=== PATIENT | female | born 1990 | race American Indian/Alaskan Native ===

== ENCOUNTER 2017-02-09 11:42 | Emergency (ER) | payer SELFPAY ==
--- NOTE | 2017-02-09 14:28 | Emergency Department Report ---
Chief Complaint: Pain General Stated Complaint: GENERAL PAIN Time Seen by Provider: 02/09/17 14:28 - HPI History of Present Illness: Patient reports that she found out by home test that she is . Last pressure. Was 12/09/2016. She says she is having generalized aches and pain and lower abdominal cramping. Denies any nausea or vomiting. She denies having any pain at present. Denies any vaginal bleeding or discharge. Denies any urinary burning frequency or urgency. Denies any fever or chills. Patient said that this is her first . She says she took medication last week for cramping. - ROS Review of Systems: All systems are negative unless stated in HPI above - Exam Vital Signs: Vital Signs 02/09/17 12:16 Temperature 98 F Pulse Rate 73 Respiratory 20 Rate Blood Pressure 112/66 O2 Sat by Pulse 100 Oximetry Physical Exam: Gen.: This is a 26-year-old female well-nourished well-developed in no acute distress. Abdomen: No guarding or rebound tenderness, no CVA tenderness. Positive bowel sounds in all quadrants. MSE screening note: Focused history and physical exam performed. Due to findings the following was ordered:mdm ED Medical Decision Making - Medical Decision Making MDM: Patient screened by provider in triage area. Appropriate protocol initiated and patient to be seen in main ED by PROVIDER. ED Disposition for MSE Condition: Stable
[2017-02-09 15:17] LABS: Basophils % (Auto) 0.4 % (0.0-1.8); Hematocrit 32.7 % (30.3-42.9); Mean Corpuscular HGB Conc 34 % (30-34); Mean Corpuscular Volume 77 fl (79-97); Platelet Count 220 K/mm3 (140-440); Red Blood Count 4.26 M/mm3 (3.65-5.03); Red Cell Distribution Width 14.4 % (13.2-15.2); White Blood Count 8.5 K/mm3 (4.5-11.0)
[2017-02-09 15:27] LABS: Anion Gap 15 mmol/L; BUN/Creatinine Ratio 18; Blood Urea Nitrogen 9 mg/dL (7-17); Calcium 8.7 mg/dL (8.4-10.2); Carbon Dioxide 23 mmol/L (22-30); Chloride 102.3 mmol/L (98-107); Glucose 70 mg/dL (65-100); Sodium 136 mmol/L (137-145)
[2017-02-09 15:34] LABS: Mean Corpuscular Hemoglobin 26 pg (28-32)
[2017-02-09 15:38] LABS: Bilirubin,Urine NEG (Negative); Blood,Urine NEG (Negative); Ketones,Urine NEG (Negative); Leukocyte Esterase,Urine NEG (Negative); Mucus,Urine 2+ /HPF; Nitrite,Urine NEG (Negative); Protein,Urine <15 mg/dL mg/dL (Negative); Urobilinogen,Urine < 2.0 mg/dL (<2.0)
--- NOTE | 2017-02-09 22:00 | Emergency Department Report ---
HPI - General Chief Complaint: Pain General Time Seen by Provider: 02/09/17 14:28 - HPI HPI: This is a 26-year-old female presents to the emergency department with complaint of a few days of some generalized body aches and pains. She also found out that she was last week from a home test. Her last menstrual cycle was in December but she says that it has been "irregular all year." She does not currently have an [facility]. She took some ibuprofen for her discomfort prior to presentation. She denies any vaginal bleeding, dysuria, vaginal discharge, fever, nausea or vomiting. She says that she has an appointment tomorrow at an [facility] clinic at 1 PM to have a free ultrasound done. ED Past Medical Hx - Past Medical History Previous Medical History?: No - Surgical History Past Surgical History?: No - Social History Smoking Status: Current Every Day Smoker Substance Use Type: Alcohol, Marijuana - Medications Home Medications: Home Medications Medication Instructions Recorded Confirmed Last Taken Type Vit No.130/Iron/FA 1 each PO QDAY #30 tablet 02/09/17 Unknown Rx [ Tablet] ED Review of Systems ROS: Stated complaint: GENERAL PAIN Other details as noted in HPI Comment: All other systems reviewed and negative Constitutional: denies: chills, fever Eyes: denies: eye pain, eye discharge, vision change ENT: denies: ear pain, throat pain Respiratory: denies: cough, shortness of breath, wheezing Cardiovascular: denies: chest pain, palpitations Gastrointestinal: abdominal pain. denies: nausea, vomiting Genitourinary: denies: urgency, dysuria, discharge Musculoskeletal: arthralgia, myalgia Skin: denies: rash, lesions Neurological: denies: headache, weakness, paresthesias Physical Exam - Physical Exam Vital Signs: Vital Signs 02/09/17 12:16 Temperature 98 F Pulse Rate 73 Respiratory 20 Rate Blood Pressure 112/66 O2 Sat by Pulse 100 Oximetry Physical Exam: GENERAL: The patient is well-developed well-nourished. HENT: Normocephalic. Atraumatic. Patient has moist mucous membranes. EYES: Extraocular motions are intact. Pupils equal reactive to light bilaterally. NECK: Supple. Trachea is midline. CHEST/LUNGS: Clear to auscultation. There is no respiratory distress noted. HEART/CARDIOVASCULAR: Regular. There is no tachycardia. There is no gallop rub or murmur. ABDOMEN: Abdomen is soft, nontender. No guarding or rebound tenderness. Patient has normal bowel sounds. There is no abdominal distention. SKIN: Skin is warm and dry. NEURO: The patient is awake, alert, and oriented. The patient is cooperative. The patient has no focal neurologic deficits. The patient has normal speech. MUSCULOSKELETAL: There is no tenderness or deformity. There is no limitation range of motion. There is no evidence of acute injury. Muscle strength 5 out of 5 upper and lower extremities bilaterally including EHL. ED Course Vital Signs 02/09/17 12:16 Temperature 98 F Pulse Rate 73 Respiratory 20 Rate Blood Pressure 112/66 O2 Sat by Pulse 100 Oximetry ED Medical Decision Making - Lab Data Result diagrams: 02/09/17 14:42 02/09/17 14:42 - Medical Decision Making 26-year-old female presents with some generalized body aches including some lower abdomen for the past few days. She also has a positive home test. Her labs are mostly unremarkable including no urinary tract infection but she did have a positive home test. I checked the quantitative beta hCG and it was at about 8500. The patient was offered an ultrasound to make sure that there was a intrauterine versus an ectopic, however the patient deferred/refused this imaging examination she has an appointment tomorrow at 1 PM to have an ultrasound done and she does not want to incur the cost of having it done to the emergency department when it will be free for her tomorrow at 1 PM. I spoke to the patient in great detail about my concern for a lack of imaging as I cannot rule out an ectopic or confirm an intrauterine . She understands that if there is an ectopic then it could be a obstetric and/or surgical emergency and can result in ruptured fallopian tube, loss of fallopian tube and/or ovary, pain and infection , future infertility issues. The patient does not have a toxic or rigid abdomen. Her body aches are also in other locations besides just the abdomen that would not be consistent with any emergent condition. She does not have a leukocytosis. Vital signs are stable including being afebrile. The patient understands that if she has to develop any worsening of her abdominal pain, developing a fever or any signs of worsening of her condition or any acute distress, she needs to return to the emergency Department immediately. She continues to reiterate that she has her appointment and she will make sure that she does not miss it. - Differential Diagnosis , fibroids, ectopic, UTI Critical Care Time: No Critical care attestation.: If time is entered above; I have spent that time in minutes in the direct care of this critically ill patient, excluding procedure time. ED Disposition Clinical Impression: Body aches Qualifiers: Weeks of gestation: less than 8 weeks Qualified Code(s): Z3A.01 - Less than 8 weeks gestation of Disposition: DC-01 TO HOME OR SELFCARE Is pt being admited?: No Condition: Stable Instructions: (ED) Additional Instructions: Please follow up tomorrow with your [facility] or the clinic for a urinary ultrasound as previously scheduled. Your hormone level today was 8500. Return to the emergency department immediately with any vaginal bleeding , sharp abdominal pain, or any acute distress. I have started you on a vitamin to be taken daily. He can take Tylenol every 4 hours, using weight-based dosing, as needed for any discomfort. Otherwise do not take any medications that are not prescribed by a physician. Prescriptions: Vit No.130/Iron/FA [ Tablet] 1 each PO QDAY #30 tablet Referrals: PRIMARY CARE [Primary Care Provider] - 3-5 Days [facility] [Provider Group] - 3-5 Days [facility] [Provider Group] - 3-5 Days [facility] [Provider Group] - 3-5 Days Time of Disposition: 22:51
[2017-02-09 22:08] VITALS: BP 98/51
== END 2017-02-09 23:05 | disposition home or self-care (01) ==
LOC: ED 11:42
DX: O26.891 Other specified pregnancy related conditions, first trimester (principal); M79.1 Myalgia; Z3A.01 Less than 8 weeks gestation of pregnancy; F12.10 Cannabis abuse, uncomplicated; F17.200 Nicotine dependence, unspecified, uncomplicated
CPT/HCPCS: 36415; 80048; 81001; 84702; 84703; 85025; 86850; 86900; 86901; 99283